=== PATIENT | female | born 1995 | race Caucasian/White ===

== ENCOUNTER 2016-06-14 03:08 | Emergency (ER) | payer MEDICAID ==
[2016-06-14 03:27] VITALS: BP 105/60
[2016-06-14] MEDS ORDERED: HYDROCODONE/ACETAMINOPHEN 5-325 MG 6 TAB/DSPK PO PRN (03:39)
[2016-06-14] MEDS ORDERED: PENICILLIN V POTASSIUM 500 MG TABLET PO ONE (03:40)
[2016-06-14] MEDS ORDERED: HYDROCODONE/ACETAMINOPHEN 7.5-325 MG TABLET PO ONE (03:40)
--- NOTE | 2016-06-14 03:44 | ER Document Report ---
[id number] Notes: Patient is a 21-year-old female presents with complaints of toothache. Patient says that her upper premolar was previously removed and now she has a lot of pain in the area. She says she is supposed to go back to for a root canal but she never did. She has no facial swelling. No fevers. No vomiting. No difficulty breathing or swallowing. No other complaints at this time. TRAVEL OUTSIDE OF THE [place] IN LAST 30 DAYS: No - Related Data Allergies/Adverse Reactions: No Known Allergies Allergy (Verified 06/14/16 03:21) Past Medical History - Social History Smoking Status: Current Every Day Smoker Chew tobacco use (# tins/day): No Frequency of alcohol use: None Drug Abuse: None Family History: None Patient has suicidal ideation: No Patient has homicidal ideation: No Pulmonary Medical History: Reports: Hx Asthma Renal/ Medical History: Denies: Hx Peritoneal Dialysis Past Surgical History: Reports: Hx Appendectomy, Hx Cholecystectomy - Immunizations Immunizations up to date: Yes Hx Diphtheria, Pertussis, Tetanus Vaccination: Yes Review of Systems - Review of Systems Notes: My Normal Review Basic REVIEW OF SYSTEMS: CONSTITUTIONAL : Denies fever, chills, or sweats. Denies recent illness. EENT: Pain in gums from her previous tooth was removed. MUSCULOSKELETAL: Denies neck or back pain or joint pain or swelling. SKIN: Denies rash or skin lesions. NEUROLOGICAL: Denies altered mental status or loss of consciousness. Denies headache. Denies weakness or paralysis or loss of use of either side. Denies problems with gait or speech. Denies sensory or motor loss. ALL OTHER SYSTEMS REVIEWED AND NEGATIVE. Physical Exam - Vital signs Vitals: Temp Pulse Resp BP Pulse Ox 97.6 F 86 16 105/60 100 06/14/16 03:22 06/14/16 03:22 06/14/16 03:22 06/14/16 03:22 06/14/16 03:22 - Notes Notes: General Appearance: Well nourished, alert, cooperative, no acute distress, moderate obvious discomfort. Vitals: reviewed, See vital signs table. Head: no swelling or tenderness to the head Eyes: PERRL, EOMI, Conjuctiva clear Mouth: Patient is an open socket the area of the left upper premolar. There is no redness or swelling. No erythema. No swelling of the face. This appears to be the source of her pain. Do not see evidence of dental abscess at this time. Patient is handling her secretions well. Is no evidence of impending airway compromise. Throat: No tonsillar inflammation, No airway obstruction, No lymphadenopathy Neck: Supple, no neck tenderness, Neuro: speech clear, oriented x 3, normal affect, responds appropriately to questions. Course - Vital Signs Vital signs: Temp Pulse Resp BP Pulse Ox 97.6 F 86 16 105/60 100 06/14/16 03:22 06/14/16 03:22 06/14/16 03:22 06/14/16 03:22 06/14/16 03:22 - Transfer of Care Notes: 06/14/16 05:41 Patient is having secretions were difficulty. There is no evidence of dental abscess on exam. We'll place her on pain medicine and penicillin. Encourage her to follow closely with the dentist. I did give her our form that has a list of low-cost dentists in [place] that except Medicaid. Also encourage her to call around to the different dental offices in the area to see you can get her of the soonest and would potentially take her insurance. Patient occurs to return to ER immediately if she has facial swelling, difficulty breathing, worsening pain. Patient agrees with plan and will be discharged home. Discharge - Discharge Clinical Impression: Toothache Condition: Good Disposition: HOME, SELF-CARE Additional Instructions: Oral Narcotic Medication You have been given a prescription for pain control. This medication is a narcotic. It's best taken with food, as nausea can result if taken on an empty stomach. Don't operate machinery or drive within six hours of taking this medication. Do not combine this medicine with alcohol, or with any medication which can cause sedation (such as cold tablets or sleeping pills) unless you get permission from the physician. Narcotics tend to cause constipation. If possible, drink plenty of fluids and eat a diet high in fiber and fruits. Toothache Your pain is due to dental decay. The tooth must be repaired in order for you to feel better. You will, therefore, be referred to a dentist. Severe swelling or drainage around a tooth usually means a deep dental abscess. This also requires evaluation and treatment by the dentist, but antibiotics may be prescribed while awaiting dental treatment. You should be rechecked immediately if you develop major swelling of the face, increasing pain, a lump in the jaw or gums, headache, or fever. Please call around to the local dentist offices to see who can care for you the soonest and who will take your insurance and can perform a root canal for you. Prescriptions: Penicillin V Potassium 500 mg PO BID #14 tablet Forms: Return to Work Referrals: KATI ESPITIA MD [Primary Care Provider] - Follow up as needed
== END 2016-06-14 03:52 | disposition home or self-care (01) ==
LOC: ER 03:08
DX: K08.9 Disorder of teeth and supporting structures, unspecified (principal); F17.200 Nicotine dependence, unspecified, uncomplicated; Z90.49 Acquired absence of other specified parts of digestive tract
CPT/HCPCS: 99282; J3490

== ENCOUNTER 2017-11-16 13:41 | Emergency (ER) | payer MEDICAID ==
[2017-11-16 13:54] VITALS: BP 111/60
--- NOTE | 2017-11-16 14:19 | ER Document Report ---
HPI - HPI Pain Level: 5 Notes: Patient is a 22-year-old female no significant past medical history who presents to the ED complaining of a bumps to her posterior hand/wrist times 3-4 months. Patient states that the area does fluctuate in size from time to time, but lately started to bother her and cause some discomfort so she wanted evaluated. The pain will radiate down into her hand and upper arm. She is right-hand dominant and does use her hand often. She denies any injury. She has not noticed any bruising or swelling otherwise. Denies any drug allergies. + mild tingling to the rt pinky. Denies any headache, fever, URI, sore throat , chest pain, palpitations, syncope, cough, shortness of breath, wheeze, dyspnea , abdominal pain, nausea/vomiting/diarrhea, urinary retention, dysuria, hematuria, muscle paralysis/weakness, or rash. - ROS Systems Reviewed and Negative: Yes All other systems reviewed and negative - CONSTITUTIONAL Constitutional: DENIES: Fever, Chills - REPRODUCTIVE Reproductive: DENIES: : Past Medical History - Social History Smoking Status: Current Every Day Smoker Chew tobacco use (# tins/day): No Frequency of alcohol use: None Drug Abuse: None Family History: None Patient has suicidal ideation: No Patient has homicidal ideation: No Pulmonary Medical History: Reports: Hx Asthma Renal/ Medical History: Denies: Hx Peritoneal Dialysis Past Surgical History: Reports: Hx Appendectomy, Hx Cholecystectomy - Immunizations Immunizations up to date: Yes Hx Diphtheria, Pertussis, Tetanus Vaccination: Yes Vertical Provider Document - CONSTITUTIONAL Agree With Documented VS: Yes Notes: PHYSICAL EXAMINATION: GENERAL: Well-appearing, well-nourished and in no acute distress. Neck: FROM. Strength 5+/5. Spurling negative. Non-tender. LUNGS: Breath sounds clear to auscultation bilaterally and equal. No wheezes rales or rhonchi. HEART: Regular rate and rhythm without murmurs, rubs, gallops. Musculoskeletal: Rt wrist: FROM to passive/active. Strength 5+/5. N/V intact distal. + cystic mass to the posterior hand/wrist area. No erythema or warmth. Extremities: No cyanosis, clubbing, or edema b/l. Peripheral pulses 2+. Capillary refill less than 3 seconds. NEUROLOGICAL: Normal speech, normal gait. Normal sensory, motor exams PSYCH: Normal mood, normal affect. SKIN: see above. Warm, Dry, normal turgor, no rashes or lesions noted. - INFECTION CONTROL TRAVEL OUTSIDE OF THE [place] IN LAST 30 DAYS: No Course - Re-evaluation Re-evalutation: 11/16/17 14:18 Patient is an afebrile, well-hydrated, 22-year-old female who presents to the ED with a ganglion cyst to her right wrist. Vitals are acceptable without any significant tachycardia, tachypnea, or hypoxia. PE is otherwise unremarkable for any neurovascular compromise, obvious tendon/ligament rupture, obvious fracture/dislocation, septic joint. No labs or imaging warranted at this time based on H&P. I did review several treatment options for ganglion cyst and we came to the conclusion that she will follow-up with orthopedics. I will send her home with a prescription for Voltaren gel. Conservative measures otherwise for symptoms. Recheck with your PCM in 3-5 days as well. Return to the ED with any worsening/concerning symptoms otherwise as reviewed in discharge. Patient is in agreement. - Vital Signs Vital signs: Temp Pulse Resp BP Pulse Ox 99.0 F 69 16 111/60 98 11/16/17 13:53 11/16/17 13:53 11/16/17 13:53 11/16/17 13:53 11/16/17 13:53 Discharge - Discharge Clinical Impression: Ganglion cyst of dorsum of right wrist Condition: Stable Disposition: HOME, SELF-CARE Instructions: Ganglion Cyst ([facility]) Additional Instructions: Rest, Ice, Compression, Elevation Use splint as directed Tylenol/ibuprofen as needed Light stretches daily F/u with your PCP in 3-5 days for a recheck Call orthopedics to schedule an appointment for further evaluation and management Return to the ED with any worsening symptoms and/or development of fever, headache, chest pain, palpitations, syncope, shortness of breath, trouble breathing, abdominal pain, n/v/d, muscle weakness/paralysis, numbness/tingling, swelling, redness, or other worsening symptoms that are concerning to you. Prescriptions: Diclofenac Sodium [Voltaren] 4 gm TP QID PRN #100 gel..gm. PRN Reason: Referrals: KATI ESPITIA MD [Primary Care Provider] - Follow up as needed [facility] [Provider Group] - Follow up in 3-5 days
== END 2017-11-16 14:26 | disposition home or self-care (01) ==
LOC: ER 13:41
DX: M67.431 Ganglion, right wrist (principal); R20.0 Anesthesia of skin; F17.200 Nicotine dependence, unspecified, uncomplicated; J45.909 Unspecified asthma, uncomplicated
CPT/HCPCS: 99282; L3908 ×2